=== PATIENT | male | born 1975 | race African-American/Black ===

== ENCOUNTER 2018-12-24 11:41 | Inpatient (IN) | payer OTHER ==
[~2018-12-24] VITALS: Ht 182.9 cm; Wt 161.9 kg
[~2018-12-24 11:41] MED LIST: ASPIRIN325 PO; COREG25 MG PO; ENTRESTO 97 MG1 EACH PO; LIPITOR 20 MG T20 M1 PO
[2018-12-24 11:45] VITALS: BP 131/108
[2018-12-24] MEDS ORDERED: CARDIZEM CD240 MG PO (11:50)
[2018-12-24] MEDS ORDERED: BIDIL TABLET1 EACH PO (11:51)
[2018-12-24] MEDS ORDERED: XARELTO15 MG PO (11:51)
[2018-12-24 12:21] LABS: ABSOLUTE LYMPHOCYTES 1.2 thou/uL (0.8-5.3); ABSOLUTE MONOCYTES 0.6 thou/uL (0.0-1.2); ABSOLUTE NEUTROPHILS 3.6 thou/uL (1.6-8.1); BASOPHILS 0.7 %; EOSINOPHILS 0.2 %; HEMATOCRIT 48.1 % (42.0-52.0); HEMOGLOBIN 15.6 gm/dL (14.0-18.0); LYMPHOCYTES 21.3 %; MCH 27.6 pg (26.0-34.0); MCHC 32.4 g/dL (28.0-37.0); MCV 85.4 fL (80.0-100.0); MONOCYTES 10.9 %; MPV 7.7 fl. (7.2-11.1); NUCLEATED RBCS 0 /100WBC; PLATELET COUNT* 259 thou/uL (150-400); POLYS 66.9 %; RBC 5.63 mil/uL (4.50-6.00); RDW-CV 16.8 % (10.5-14.5); WBC 5.4 thou/uL (4.0-11.0)
[2018-12-24 12:26] LABS: ANION GAP 5 mmol/L (7-16); BUN 18 mg/dL (7-18); CHLORIDE 105 mmol/L (98-107); CO2 30 mmol/L (21-32); CREATININE 2.1 mg/dL (0.6-1.3); GLUCOSE 94 mg/dL (70-99); POTASSIUM 3.7 mmol/L (3.5-5.1); SODIUM 140 mmol/L (136-145)
[2018-12-24 12:30] LABS: APTT 31.3 Seconds (25.0-31.3); INR 1.2; PROTIME 12.6 Seconds (9.20-11.50)
[2018-12-24 12:45] LABS: ALBUMIN 2.6 g/dL (3.4-5.0); ALKALINE PHOSPHATASE 51 U/L (46-116); CK-MB MASS 2.7 ng/mL (<0.5-3.6); LIPASE 89 U/L (73-393); MAGNESIUM 1.5 mg/dL (1.8-2.4); NT-PRO BRAIN NAT PEPTIDE 1976 pg/mL (<300); SGOT 21 U/L (15-37); SGPT 21 U/L (30-65); TOTAL BILIRUBIN 0.7 mg/dL (<0.1-1.0); TOTAL PROTEIN 6.2 g/dL (6.4-8.2); TROPONIN-I LEVEL <0.06 ng/mL (<0.06)
[2018-12-24 15:23] VITALS: BP 128/84
--- NOTE | 2018-12-24 15:38 | EKG ---
[place] [address] ELECTROCARDIOGRAM REPORT Name: HALLVINAY Room: [address] ADM IN M.R.#: [id number] Admission: 12/24/18 Attend Phys: Tari Hedrick MD Discharge: Date of : 71 Report #: [id number] THIS REPORT FOR: //name// [facility] ED Test Date: 2018-12-24 Test Time: 11:54:12 Pat Name: VINAY HALL Department: Room: [facility] Gender: M Property Insurance Claims Examiner: TDOWNS : 1975 Requested By: Stephany Wen Order Number: [id number] MD: Soy South Measurements Intervals [place] Rate: 101 P: AR: QRS: 100 QRSD: 113 T: 253 QT: 391 QTc: 507 Interpretive Statements Atrial fibrillation Ventricular premature complex Borderline intraventricular conduction delay Low voltage, extremity leads Abnormal R-wave progression, late transition Borderline repolarization abnormality Prolonged QT interval Compared to ECG 08/21/2017 09:02:17 Low QRS voltage now present Prolonged QT interval now present Sinus rhythm no longer present Electronically Signed On 12-24-2018 15:38:02 HOSPICE TEAM LEAD by Soy South [email or web address] <ELECTRONICALLY SIGNED> By: Soy South MD, FAC 12/24/18 1538 1154 1154 Soy South MD, [facility] /EPI
--- NOTE | 2018-12-24 16:29 | 2DMMODE ---
[place] [address] 2 D/M-MODE ECHOCARDIOGRAM Name: VINAY HALL Room: [facility] IN [facility]#: [id number] Admission: 12/24/18 Attend Phys: Tari Hedrick, Discharge: Date of : 71 Date of Service: 12/24/18 1629 Report #: [id number] THIS REPORT FOR: //name// APPROVED REPORT Study performed: 12/24/2018 15:33:02 EXAM: Comprehensive 2D, Doppler, and color-flow Echocardiogram Patient Location: In-Patient Room #: 228 Status: routine BSA: 2.78 HR: 70 bpm BP: 140/73 mmHg Rhythm: Atrial Fibrillation Other Information Study Quality: Good Indications Congestive Heart Failure Atrial Fibrillation 2D Dimensions IVSd: 14.52 (7-11mm) LVOT Diam: 25.76 (18-24mm) LVDd: 68.73 mm PWd: 11.97 (7-11mm) Ascending Ao: 37.37 (22-36mm) LVDs: 63.90 (25-40mm) Aortic Root: 34.76 mm Volumes Left Atrial Volume (Systole) LA ESV Index: 88.30 mL/m2 Aortic Valve AoV Peak Oneal.: 0.89 m/s AO Peak Gr.: 3.16 mmHg LVOT Max P.27 mmHg AO Mean Gr.: 2.01 mmHg LVOT Mean P.71 mmHg LVOT Max V: 0.56 m/s AO V2 VTI: 11.94 cm LVOT Mean V: 0.39 m/s STEPHANIE (VTI): 3.37 cm2 LVOT V1 VTI: 7.72 cm TDI Lateral E' Oneal.: 0.12 m/[place] [address] 2 D/M-MODE ECHOCARDIOGRAM Name: VINAY HALL Room: [address] IN M.R.#: [id number] Admission: 12/24/18 Attend Phys: Tari Hedrick, Discharge: Date of : 71 Date of Service: 12/24/18 1629 Report #: [id number] Pulmonary Valve PV Peak Oneal.: 0.84 m/s PV Peak Gr.: 2.80 mmHg Tricuspid Valve RAP Estimate: 10.00 mmHg TR Peak Gr.: 22.61 mmHg RVSP: 32.00 mmHg PA Pressure: 32.00 mmHg Left Ventricle Left ventricle is moderately dilated. There is global hypokinesis of the left ventricle. Borderline concentric left ventricular hypertrophy. Left ventricular systolic function is severely decreased. LVEF is 20%. This study is not technically sufficient to allow evaluation of the LV diastolic function due to atrial fibrillation. Right Ventricle The right ventricle is normal size. The right ventricular systolic function is normal. Atria Left atrium is moderately dilated. The right atrium size is normal. Aortic Valve Mild aortic valve sclerosis. No aortic regurgitation is present. There is no aortic valvular stenosis. Mitral Valve The mitral valve is normal in structure. Mild to moderate mitral regurgitation. No evidence of mitral valve stenosis. Tricuspid Valve The tricuspid valve is normal in structure. Mild tricuspid regurgitation. Mild pulmonary hypertension. Pulmonic Valve The pulmonary valve is normal in structure. Mild pulmonic regurgitation. Great Vessels The aortic root is normal in size. IVC is dilated and collapses >50% with inspiration. Pericardium There [place] [address] 2 D/M-MODE ECHOCARDIOGRAM Name: VINAY HALL Room: [address] IN .R.#: [id number] Admission: 12/24/18 Attend Phys: Tari Hedrick, Discharge: Date of : 71 Date of Service: 12/24/18 1629 Report #: [id number] <Conclusion> Left ventricle is moderately dilated. Borderline concentric left ventricular hypertrophy. Left ventricular systolic function is severely decreased. LVEF is 20%. This study is not technically sufficient to allow evaluation of the LV diastolic function due to atrial fibrillation. The right ventricle is normal size. Left atrium is moderately dilated. Mild aortic valve sclerosis. No aortic regurgitation is present. There is no aortic valvular stenosis. The mitral valve is normal in structure. Mild to moderate mitral regurgitation. The tricuspid valve is normal in structure. Mild tricuspid regurgitation. Mild pulmonary hypertension. IVC is dilated and collapses >50% with inspiration. There is no pericardial effusion. There is global hypokinesis of the left ventricle. <ELECTRONICALLY SIGNED> By: Soy South MD, [facility] 12/24/18 1629 1629 1629 Soy South MD, FACC /INF
[2018-12-24 20:00] VITALS: BP 127/75
[2018-12-25] VITALS (8 sets, daily range): BP systolic 114–136; BP diastolic 73–97
--- NOTE | 2018-12-25 05:35 | NUR ---
PT CURRENTLY RESTING IN BED. PT AFIB ON MONITOR. PT REMAINS ON CPAP DURING NIGHT. PT NO C/O PAIN. AM LABS TO BE REVIEWED.
[2018-12-25 06:14] LABS: HEMATOCRIT 41.9 % (42.0-52.0); MCH 27.4 pg (26.0-34.0); MCHC 32.3 g/dL (28.0-37.0); MCV 84.8 fL (80.0-100.0); MPV 7.7 fl. (7.2-11.1); RBC 4.94 mil/uL (4.50-6.00); RDW-CV 16.8 % (10.5-14.5); WBC 4.6 thou/uL (4.0-11.0)
[2018-12-25 06:18] LABS: HEMOGLOBIN 13.6 gm/dL (14.0-18.0)
[2018-12-25 06:57] LABS: ALBUMIN 2.4 g/dL (3.4-5.0); CALCIUM 8.4 mg/dL (8.5-10.1); MAGNESIUM 1.6 mg/dL (1.8-2.4); POTASSIUM 3.5 mmol/L (3.5-5.1); TOTAL BILIRUBIN 0.9 mg/dL (<0.1-1.0); TOTAL PROTEIN 5.5 g/dL (6.4-8.2)
--- NOTE | 2018-12-25 10:29 | NUR ---
PT ALERT AND ORIENTED. TELE TRACKING AFIB AND ALL VSS ON ROOM AIR. DENIES CP, SOA AT REST. DOES STATE HE HAS MINIMAL SÁNCHEZ. 3+BLE NOTED. INSTRUCTED ON IMPORTANCE OF NURSING RECORDING ACCURATE INTAKE/OUTPUT. EDUCATED ON SAFETY AND PLAN OF CARE. PLEASE SEE ASSESSMENT FOR ADDITIONAL INFORMATION. WILL CONTINUE TO MONITOR
[2018-12-26 05:00] VITALS: BP 119/84
--- NOTE | 2018-12-26 05:58 | NUR ---
VITALS WNL. SEE MAR. SEE CHARTING. HOURLY ROUNDING FOR SAFETY.
[2018-12-26 08:00] VITALS: BP 136/88
[2018-12-26 11:56] VITALS: BP 122/92
[2018-12-26 15:46] VITALS: BP 126/73
[2018-12-26 19:50] VITALS: BP 146/90
[2018-12-27] VITALS: BP 140/87
[2018-12-27 04:00] VITALS: BP 135/91
--- NOTE | 2018-12-27 06:11 | NUR ---
VITALS WNL. SEE MAR. SEE CHARTING. HOURLY ROUNDING FOR SAFETY.
[2018-12-27 08:00] VITALS: BP 128/89
--- NOTE | 2018-12-27 11:05 | NUR ---
MET WITH PT TO DISCUSS HOME SITUATION/DC PLANNING. PT LIVES WITH . IS INDEPENDENT AND ACTIVE, USES CPAP AT HOME. PT STILL WORKS. DENIES ANY DC NEEDS. PLANS TO RETURN HOME AT DC. DISCUSSED DAILY WTS AND COMPLIANCE WITH CPAP, HE STATES HE PLANS TO GET A SCALE AND WEIGH DAILY
[2018-12-27 12:00] VITALS: BP 123/79
--- NOTE | 2018-12-27 13:13 | NUR ---
PT A/O. TELE TRACKING AFIB AND ALL VSS ON ROOM AIR. DENIES CP, SOA. STATES HE FEELS THAT HIS EDEMA IS CONTINUING TO IMPROVE. PT IS LOOKING FORWARD TO DC IN NEXT DAY OR TWO. EDUCATED ON SAFETY AND PLAN OF CARE. PLEASE SEE ASSESSMENT FOR ADDITIONAL INFORMATION. WILL CONTINUE TO MONITOR
[2018-12-27 16:00] VITALS: BP 119/94
[2018-12-27 20:00] VITALS: BP 134/96
[2018-12-28] VITALS: BP 145/99
[2018-12-28 04:00] VITALS: BP 143/93
--- NOTE | 2018-12-28 05:29 | NUR ---
VITALS WNL. SEE MAR. SEE CHARTING. HOURLY ROUNDING FOR SAFETY.
[2018-12-28 08:00] VITALS: BP 127/78
--- NOTE | 2018-12-28 10:23 | NUR ---
ASSUMED CARE OF PATIENT THIS AM AT 0730. PATIENT IS ALERT AND ORIENTED X 4. HE DENIES PAIN THIS AM. TELE SHOWS AFIB FLUTTER WITH FREQUENT VENTRICULAR ECTOPIES. PATIENT IS DIURESING WELL FROM IV LASIX. LUNG SOUNDS REMAIN DIMINISHED WITH SOME CRACKLES NOTED. 2+ BILATERAL LE EDEMA. PLANS TO DISCHARGE TODAY. PATIENT'S LABS TO BE DONE PRIOR TO DISCHARGING.
[2018-12-28 11:21] LABS: CALCIUM 8.8 mg/dL (8.5-10.1); POTASSIUM 3.7 mmol/L (3.5-5.1)
[2018-12-28] MEDS ORDERED: HYDRALAZINE 2525 MG PO (11:58)
[2018-12-28] MEDS ORDERED: IMDUR 60 MG TAB60 M1 PO (11:58)
[2018-12-28] MEDS ORDERED: COREG25 MG PO (11:58)
[2018-12-28] MEDS ORDERED: LASIX 80 MG TAB80 MG PO (13:16)
[2018-12-28] MEDS ORDERED: KLOR-CON 1010 MEQ PO (14:54)
== END 2018-12-28 16:56 | disposition home or self-care (01) | DRG 291 ==
LOC: M.ERS 11:41 → M.TBA-ER 12:54 → M.2W 12:54
PROVIDERS: Family Medicine; Internal Medicine; ADMIT Internal Medicine
DX: I13.0 Hypertensive heart and chronic kidney disease with heart failure and stage 1 through stage 4 chronic kidney disease, or unspecified chronic kidney disease (principal); I50.23 Acute on chronic systolic (congestive) heart failure; N17.9 Acute kidney failure, unspecified; Z68.42 Body mass index [BMI] 45.0-49.9, adult; E44.0 Moderate protein-calorie malnutrition; I48.2 Chronic atrial fibrillation; I42.9 Cardiomyopathy, unspecified; E78.5 Hyperlipidemia, unspecified; G47.30 Sleep apnea, unspecified; E66.01 Morbid (severe) obesity due to excess calories; I25.10 Atherosclerotic heart disease of native coronary artery without angina pectoris; N18.3 Chronic kidney disease, stage 3 (moderate); M10.9 Gout, unspecified; E78.00 Pure hypercholesterolemia, unspecified; Z79.899 Other long term (current) drug therapy

== ENCOUNTER 2019-02-07 22:48 | Inpatient (IN) | payer OTHER ==
[~2019-02-07] VITALS: Ht 182.9 cm; Wt 177.4 kg
[~2019-02-07 22:48] MED LIST changes: +BIDIL TABLET1 EACH PO; +CARDIZEM CD240 MG PO; +HYDRALAZINE 2525 MG PO; +IMDUR 60 MG TAB60 M1 PO; +KLOR-CON 1010 MEQ PO; +LASIX 80 MG TAB80 MG PO; +XARELTO15 MG PO
[2019-02-07 23:02] VITALS: BP 147/105
[2019-02-07 23:27] LABS: ABSOLUTE LYMPHOCYTES 0.7 thou/uL (0.8-5.3); ABSOLUTE MONOCYTES 0.7 thou/uL (0.0-1.2); ABSOLUTE NEUTROPHILS 4.4 thou/uL (1.6-8.1); BASOPHILS 0.7 %; EOSINOPHILS 0.1 %; HEMATOCRIT 41.4 % (42.0-52.0); HEMOGLOBIN 13.2 gm/dL (14.0-18.0); LYMPHOCYTES 12.4 %; MCH 26.5 pg (26.0-34.0); MCHC 31.9 g/dL (28.0-37.0); MCV 83.2 fL (80.0-100.0); MONOCYTES 12.4 %; MPV 7.4 fl. (7.2-11.1); NUCLEATED RBCS 0 /100WBC; PLATELET COUNT* 267 thou/uL (150-400); POLYS 74.4 %; RBC 4.97 mil/uL (4.50-6.00); RDW-CV 17.7 % (10.5-14.5); WBC 5.9 thou/uL (4.0-11.0)
[2019-02-07 23:56] LABS: INR 1.6; PROTIME 16.5 Seconds (9.20-11.50)
[2019-02-08] VITALS (8 sets, daily range): BP systolic 105–143; BP diastolic 62–100
[2019-02-08 00:01] LABS: ANION GAP 10 mmol/L (7-16); BUN 45 mg/dL (7-18); CHLORIDE 104 mmol/L (98-107); CO2 27 mmol/L (21-32); GLUCOSE 125 mg/dL (70-99); POTASSIUM 4.6 mmol/L (3.5-5.1); SODIUM 141 mmol/L (136-145); TROPONIN-I LEVEL <0.06 ng/mL (<0.06)
[2019-02-08 00:03] LABS: ALBUMIN 2.8 g/dL (3.4-5.0); ALKALINE PHOSPHATASE 64 U/L (46-116); NT-PRO BRAIN NAT PEPTIDE 11709 pg/mL (<300); SGOT 29 U/L (15-37); SGPT 31 U/L (30-65); TOTAL BILIRUBIN 0.9 mg/dL (<0.1-1.0); TOTAL PROTEIN 6.1 g/dL (6.4-8.2)
[2019-02-08 03:30] LABS: URINE BILIRUBIN NEGATIVE (Negative); URINE BLOOD NEGATIVE (Negative); URINE CLARITY CLEAR; URINE COLOR YELLOW; URINE GLUCOSE-RANDOM NEGATIVE (Negative); URINE KETONES NEGATIVE (Negative); URINE LEUKOCYTES-REFLEX NEGATIVE (Negative); URINE NITRITE-REFLEX NEGATIVE (Negative); URINE PROTEIN 2+ (Negative); URINE SPECIFIC GRAVITY 1.025 (1.005-1.030); URINE UROBILINOGEN 0.2 E.U./dl (0.2-1.0)
[2019-02-08 04:10] LABS: HYALINE CASTS 0-3 Few /LPF (None Seen); SQUAMOUS 0-3 Few /LPF (0-3)
[2019-02-08 04:11] LABS: BACTERIA-REFLEX 1-9 Few /HPF (None Seen); CRYSTALS None Seen /LPF (None Seen); URINE RBC None Seen /HPF (0-2); URINE WBC-REFLEX 0-5 Rare /HPF (0-5)
[2019-02-08 12:27] LABS: CALCIUM 8.8 mg/dL (8.5-10.1); CREATININE 2.7 mg/dL (0.6-1.3); POTASSIUM 4.3 mmol/L (3.5-5.1)
[2019-02-08 14:20] LABS: AMP/METHAMP Negative (Negative); BARBITURATES Negative (Negative); BENZODIAZEPINES Negative (Negative); COCAINE Negative (Negative); METHADONE Negative (Negative); OPIATES Negative (Negative); PCP Negative (Negative); THC Negative (Negative)
--- NOTE | 2019-02-08 15:54 | EKG ---
[place] [address] ELECTROCARDIOGRAM REPORT Name: ISABELVINAY Room: [address] ADM IN M.R.#: [id number] Admission: 02/08/19 Attend Phys: Melo Funk MD Discharge: Date of : 71 Report #: [id number] THIS REPORT FOR: //name// [facility] ED Test Date: 2019-02-08 Test Time: 00:04:31 Pat Name: VINAY HALL Department: Room: [address] Gender: M Bar Examiner: MARLYN : 1975 Requested By: Lara Garcia Order Number: [id number] MD: Arvind Villarreal Measurements Intervals [place] Rate: 101 P: VA: QRS: 107 QRSD: 112 T: 243 QT: 354 QTc: 459 Interpretive Statements Atrial fibrillation Ventricular premature complex Borderline intraventricular conduction delay Low voltage, extremity leads Nonspecific T abnormalities, lateral leads Baseline wander in lead(s) I,III,aVL Compared to ECG 12/24/2018 11:54:12 T-wave abnormality now present Prolonged QT interval no longer present Electronically Signed On 02-08-2019 15:54:09 CDT by Arvind Villarreal [email or web address] <ELECTRONICALLY SIGNED> By: Arvind Villarreal MD, FACC 02/08/19 1554 0004 0004 Arvind Villarreal MD, FAC /EPI
[2019-02-09 04:00] VITALS: BP 133/79
[2019-02-09 05:44] LABS: ABSOLUTE LYMPHOCYTES 1.1 thou/uL (0.8-5.3); ABSOLUTE MONOCYTES 0.7 thou/uL (0.0-1.2); ABSOLUTE NEUTROPHILS 4.2 thou/uL (1.6-8.1); BASOPHILS 0.5 %; EOSINOPHILS 0.4 %; HEMATOCRIT 38.2 % (42.0-52.0); HEMOGLOBIN 12.5 gm/dL (14.0-18.0); LYMPHOCYTES 17.9 %; MCHC 32.7 g/dL (28.0-37.0); MCV 82.5 fL (80.0-100.0); MONOCYTES 11.9 %; MPV 7.5 fl. (7.2-11.1); NUCLEATED RBCS 0 /100WBC; PLATELET COUNT* 248 thou/uL (150-400); POLYS 69.3 %; RBC 4.63 mil/uL (4.50-6.00); RDW-CV 18.3 % (10.5-14.5)
[2019-02-09 06:06] LABS: ALBUMIN 2.5 g/dL (3.4-5.0); CALCIUM 8.5 mg/dL (8.5-10.1); CREATININE 2.5 mg/dL (0.6-1.3); MAGNESIUM 1.7 mg/dL (1.8-2.4); PHOSPHORUS* 4.6 mg/dL (2.5-4.9); POTASSIUM 3.9 mmol/L (3.5-5.1)
[2019-02-09 08:50] VITALS: BP 135/88
[2019-02-09 12:00] VITALS: BP 141/97
[2019-02-09 16:04] VITALS: BP 111/77
[2019-02-09 20:00] VITALS: BP 114/78
[2019-02-10] VITALS (7 sets, daily range): BP systolic 119–151; BP diastolic 85–105
[2019-02-10 05:08] LABS: ABSOLUTE LYMPHOCYTES 0.8 thou/uL (0.8-5.3); ABSOLUTE MONOCYTES 0.6 thou/uL (0.0-1.2); ABSOLUTE NEUTROPHILS 3.9 thou/uL (1.6-8.1); BASOPHILS 0.4 %; EOSINOPHILS 0.4 %; HEMATOCRIT 40.2 % (42.0-52.0); HEMOGLOBIN 12.9 gm/dL (14.0-18.0); LYMPHOCYTES 15.1 %; MCH 26.6 pg (26.0-34.0); MCHC 32.1 g/dL (28.0-37.0); MCV 82.7 fL (80.0-100.0); MONOCYTES 11.9 %; MPV 7.4 fl. (7.2-11.1); NUCLEATED RBCS 0 /100WBC; PLATELET COUNT* 240 thou/uL (150-400); POLYS 72.2 %; RBC 4.86 mil/uL (4.50-6.00); RDW-CV 18.1 % (10.5-14.5); WBC 5.4 thou/uL (4.0-11.0)
[2019-02-10 05:16] LABS: CALCIUM 8.6 mg/dL (8.5-10.1); CREATININE 2.3 mg/dL (0.6-1.3); POTASSIUM 3.8 mmol/L (3.5-5.1)
[2019-02-10 06:36] LABS: ALBUMIN 2.6 g/dL (3.4-5.0); CREATININE 2.3 mg/dL (0.6-1.3); PHOSPHORUS* 4.2 mg/dL (2.5-4.9); POTASSIUM 3.9 mmol/L (3.5-5.1)
--- NOTE | 2019-02-10 10:11 | CON ---
[address] [address] CONSULTATION Name: VINAY HALL Room: [address] IN M.R.#: [id number] Admission: 02/08/19 Attend Phys: Melo Funk MD Discharge: Date of : 71 Report #: [id number] THIS REPORT FOR: //name// CC: Melo Cleaning DATE OF SERVICE: 02/08/2019 CONSULTING PHYSICIAN: Melo Funk MD. REASON FOR CONSULTATION: Acute kidney injury. HISTORY OF PRESENT ILLNESS: A 47-year-old gentleman admitted with dyspnea on exertion and CHF. He was having orthopnea and has a history of cardiomyopathy and consideration has been given for a biventricular ICD. He does take Advil about 3 times a week. Denies any nausea, vomiting or diarrhea, presently appears to be comfortable. He has no other complaints. REVIEW OF SYSTEMS: Constitutional, psych, heme, eyes, ENT, respiratory, cardiac, GI, , endocrine, all negative except as documented above. PAST MEDICAL HISTORY: Nonischemic cardiomyopathy, dyslipidemia, hypertension, history of obstructive sleep apnea, history of AFib, history of gout. SOCIAL HISTORY: No tobacco. MEDICATIONS: Reviewed. FAMILY HISTORY: No known kidney disease. PHYSICAL EXAMINATION: VITAL SIGNS: Blood pressure 134/89, pulse 85, temperature 36.3, respirations 22. GENERAL: No acute distress. EYES: Open. EARS: Externally normal. CARDIOVASCULAR: Regular rate. LUNGS: No crackles. ABDOMEN: Soft. MUSCULOSKELETAL: Bilateral lower extremity edema. PSYCHIATRIC: Awake, alert. LABORATORY DATA: White cell count 5.9, hemoglobin 13.2, platelets 267. Sodium 141, potassium 4.6, chloride 104, bicarbonate 27, BUN 45, creatinine 3, glucose 125, calcium 9, albumin 2.8[place] [address] CONSULTATION Name: VINAY HALL Room: [address] IN [facility]#: [id number] Admission: 02/08/19 Attend Phys: Melo Funk MD Discharge: Date of : 71 Report #: [id number] ASSESSMENT: 1. Acute kidney injury with an admission creatinine of 3 in the setting of an EF of 20%, decompensated congestive heart failure. UA is noted. In 2017, creatinine was 1.9. He was also on valsartan as an outpatient, taking Advil 3 times a week. 2. Chronic kidney disease stage 3. He saw me in 01/2018, but was lost to follow up. He has had hypertension since 2005. 3. Hypertension. 4. Morbid obesity. 5. Gout. 6. Hypoalbuminemia. Albumin 2.8. 7. Nonischemic cardiomyopathy with an EF of 20%. 8. Atrial fibrillation. 9. Obstructive sleep apnea. PLAN: 1. Check lab now. 2. He is on potassium supplement with potassium 4.6. We will need to monitor closely. 3. Check CK. 4. He is on Lasix per Cardiology. Dobutamine has been started. Agree with that. 5. Check renal ultrasound. 6. He is on a 2 liter fluid restriction with a 2-gram sodium dietary restriction. 7. Check urine protein creatinine ratio. 8. Check bladder scan. 9. Check labs again in the a.m. Thank you for requesting my opinion in the care and management of this patient. <ELECTRONICALLY SIGNED> By: Parrish Bojorquez MD 02/10/19 1011 1143 0400Parrish Bojorquez MD /nt
[2019-02-11] VITALS: BP 146/88
[2019-02-11 04:00] VITALS: BP 140/98
[2019-02-11 08:25] LABS: ABSOLUTE LYMPHOCYTES 0.6 thou/uL (0.8-5.3); ABSOLUTE MONOCYTES 0.5 thou/uL (0.0-1.2); BASOPHILS 0.4 %; EOSINOPHILS 0.6 %; HEMATOCRIT 40.4 % (42.0-52.0); HEMOGLOBIN 12.9 gm/dL (14.0-18.0); LYMPHOCYTES 15.4 %; MCH 26.5 pg (26.0-34.0); MCHC 31.9 g/dL (28.0-37.0); MCV 82.9 fL (80.0-100.0); MPV 7.4 fl. (7.2-11.1); NUCLEATED RBCS 0 /100WBC; PLATELET COUNT* 220 thou/uL (150-400); POLYS 71.6 %; RBC 4.87 mil/uL (4.50-6.00); RDW-CV 18.2 % (10.5-14.5); WBC 4.2 thou/uL (4.0-11.0)
[2019-02-11 08:29] LABS: ALBUMIN 2.6 g/dL (3.4-5.0); CALCIUM 8.6 mg/dL (8.5-10.1); CREATININE 2.1 mg/dL (0.6-1.3); POTASSIUM 3.7 mmol/L (3.5-5.1)
[2019-02-11 08:38] LABS: PREALBUMIN 20.9 mg/dL (18.0-35.7)
[2019-02-11 08:45] VITALS: BP 144/93
[2019-02-11 11:54] VITALS: BP 113/76
[2019-02-11 15:54] VITALS: BP 136/61
[2019-02-11 20:00] VITALS: BP 118/84
[2019-02-12] VITALS: BP 128/92
[2019-02-12 04:00] VITALS: BP 165/87
[2019-02-12 05:41] LABS: CREATININE 2.3 mg/dL (0.6-1.3)
[2019-02-12 12:00] VITALS: BP 136/89
[2019-02-12 16:00] VITALS: BP 136/107
[2019-02-12 20:00] VITALS: BP 140/92
[2019-02-13] VITALS: BP 130/101
[2019-02-13 04:00] VITALS: BP 152/104
[2019-02-13 05:32] LABS: CALCIUM 8.9 mg/dL (8.5-10.1); CREATININE 1.9 mg/dL (0.6-1.3); POTASSIUM 3.6 mmol/L (3.5-5.1)
[2019-02-13 06:40] LABS: MAGNESIUM 1.7 mg/dL (1.8-2.4)
[2019-02-13 08:00] VITALS: BP 165/82
[2019-02-13 12:00] VITALS: BP 139/87
[2019-02-13 16:00] VITALS: BP 126/87
[2019-02-13 20:00] VITALS: BP 156/94
[2019-02-14] VITALS: BP 125/104
[2019-02-14 03:56] VITALS: BP 150/106
[2019-02-14 04:26] LABS: HEMATOCRIT 41.8 % (42.0-52.0); HEMOGLOBIN 13.4 gm/dL (14.0-18.0); MCH 26.6 pg (26.0-34.0); MCHC 32.1 g/dL (28.0-37.0); MCV 82.8 fL (80.0-100.0); MPV 7.5 fl. (7.2-11.1); RBC 5.05 mil/uL (4.50-6.00); RDW-CV 18.5 % (10.5-14.5)
[2019-02-14 05:07] LABS: CREATININE 1.9 mg/dL (0.6-1.3); MAGNESIUM 1.8 mg/dL (1.8-2.4); POTASSIUM 3.8 mmol/L (3.5-5.1)
[2019-02-14 08:00] VITALS: BP 140/100
[2019-02-14 11:26] VITALS: BP 154/103
[2019-02-14 16:00] VITALS: BP 117/86
[2019-02-14 20:00] VITALS: BP 121/84
[2019-02-15] VITALS: BP 109/77
[2019-02-15 04:00] VITALS: BP 141/105
[2019-02-15 04:30] VITALS: BP 138/89
[2019-02-15 08:00] VITALS: BP 146/89
[2019-02-15 09:37] VITALS: BP 146/89
[2019-02-15] MEDS ORDERED: KLOR-CON 1010 MEQ PO (14:32)
[2019-02-15] MEDS ORDERED: AUGMENTIN 875-1 EACH PO (14:40)
== END 2019-02-15 15:32 | disposition home or self-care (01) | DRG 682 ==
LOC: M.ERS 22:48 → M.2W 02-08 00:18 → M.TBA-ER 02-08 00:18 → M.2W 02-08 01:50
PROVIDERS: Emergency Medicine; Internal Medicine; Internal Medicine Nephrology; ADMIT Internal Medicine
DX: N17.0 Acute kidney failure with tubular necrosis (principal); I50.43 Acute on chronic combined systolic (congestive) and diastolic (congestive) heart failure; J18.9 Pneumonia, unspecified organism; I13.0 Hypertensive heart and chronic kidney disease with heart failure and stage 1 through stage 4 chronic kidney disease, or unspecified chronic kidney disease; Z68.43 Body mass index [BMI] 50.0-59.9, adult; I42.9 Cardiomyopathy, unspecified; N18.4 Chronic kidney disease, stage 4 (severe); E78.00 Pure hypercholesterolemia, unspecified; E78.5 Hyperlipidemia, unspecified; M10.9 Gout, unspecified; G47.33 Obstructive sleep apnea (adult) (pediatric); E66.01 Morbid (severe) obesity due to excess calories; I48.2 Chronic atrial fibrillation; E87.70 Fluid overload, unspecified; R80.9 Proteinuria, unspecified; Z79.899 Other long term (current) drug therapy

== ENCOUNTER → 2019-02-21 | Outpatient (CLI) | payer OTHER ==
[~2019-02-21] MED LIST changes: +AUGMENTIN 875-1 EACH PO
[2019-02-21 09:07] LABS: ANION GAP 7 mmol/L (7-16); BUN 30 mg/dL (7-18); CALCIUM 8.8 mg/dL (8.5-10.1); CHLORIDE 100 mmol/L (98-107); CHOLESTEROL 142 mg/dL (<200); CO2 30 mmol/L (21-32); CREATININE 2.6 mg/dL (0.6-1.3); GLUCOSE 108 mg/dL (70-99); HDL CHOLESTEROL 45 mg/dL (>40); LDL CHOLESTEROL 83 mg/dL (<100); POTASSIUM 4.5 mmol/L (3.5-5.1); SODIUM 137 mmol/L (136-145); TC:HDL 3.2 Ratio (Not establshd); TRIGLYCERIDE 71 mg/dL (<150); VLDL 14 mg/dL (<40)
[2019-02-21 09:12] LABS: SERUM ASSESSMENT Clear
== END ==
LOC: M.LAB 08:02
PROVIDERS: Registered Nurse
DX: I25.10 Atherosclerotic heart disease of native coronary artery without angina pectoris (principal); I50.22 Chronic systolic (congestive) heart failure

== ENCOUNTER → 2019-02-25 | Outpatient (CLI) | payer OTHER ==
[2019-02-25 09:21] LABS: CHOLESTEROL 132 mg/dL (<200); HDL CHOLESTEROL 47 mg/dL (>40); LDL CHOLESTEROL 74 mg/dL (<100); TC:HDL 2.8 Ratio (Not establshd); TRIGLYCERIDE 58 mg/dL (<150); VLDL 12 mg/dL (<40)
[2019-02-25 09:26] LABS: SERUM ASSESSMENT Clear
== END ==
LOC: M.LAB 08:42
PROVIDERS: Registered Nurse
DX: I25.10 Atherosclerotic heart disease of native coronary artery without angina pectoris (principal)

== ENCOUNTER → 2019-03-01 | Outpatient (CLI) | payer OTHER ==
[~2019-03-01] MED LIST changes: +PRADAXA150 MG PO; +TORSEMIDE20 MG PO
[2019-03-01 13:05] VITALS: BP 139/85
[2019-03-01 13:14] LABS: HEMATOCRIT 40.6 % (42.0-52.0); HEMOGLOBIN 13.2 gm/dL (14.0-18.0); MCH 26.4 pg (26.0-34.0); MCHC 32.4 g/dL (28.0-37.0); MCV 81.7 fL (80.0-100.0); MPV 7.7 fl. (7.2-11.1); RBC 4.98 mil/uL (4.50-6.00); RDW-CV 18.4 % (10.5-14.5); WBC 5.6 thou/uL (4.0-11.0)
[2019-03-01 13:23] LABS: INR 1.5; PROTIME 15.5 Seconds (9.20-11.50)
[2019-03-01 13:25] LABS: ALBUMIN 2.7 g/dL (3.4-5.0); CALCIUM 9.1 mg/dL (8.5-10.1); CREATININE 2.7 mg/dL (0.6-1.3); POTASSIUM 4.5 mmol/L (3.5-5.1); TOTAL BILIRUBIN 1.1 mg/dL (<0.1-1.0); TOTAL PROTEIN 6.4 g/dL (6.4-8.2)
[2019-03-01 13:28] VITALS: BP 129/97
[2019-03-01 13:33] VITALS: BP 135/104
[2019-03-01 13:37] VITALS: BP 139/108
[2019-03-01 13:41] VITALS: BP 123/103
--- NOTE | 2019-03-01 15:48 | NUR ---
PATIENT CAME FOR CARDIOVERSION AND CHICHI. WHEN PERFORMING THE CHICHI, DR. ALMENDAREZ DISCOVERED AN EXISTING THROMBUS IN THE LEFT ATRIAL APPENDAGE. THE CARDIOVERSION WAS NOT PERFORMED. PATIENT IS ON XARELTO, AND ITS NOT STRONG ENOUGH. DR. ALMENDAREZ GAVE PATIENT PRADAXA AND TOLD HIM TO STOP THE XARELTO AND START THIS EVENING. ALSO, LASIX CHANGED TO TORSEMIDE TO HELP GET RID OF THE FLUID
--- NOTE | 2019-03-01 15:52 | TEE ---
[place] [address] TRANSESOPHAGEAL ECHOCARDIOGRAM Name: VINAY HALL JR Room: [facility]#: [id number] Admission: 03/01/19 Attend Phys: Rubin Cleaning, Discharge: Date of : 71 Date of Service: 03/01/19 1551 Report #: [id number] THIS REPORT FOR: //name// APPROVED REPORT Study performed: 03/01/2019 13:31:48 EXAM: Transesophageal Echocardiogram Patient Location: Out-Patient Status: routine BSA: 2.67 HR: 112 bpm BP: 135/104 mmHg Rhythm: Atrial Fibrillation Other Information Study Quality: Good Indications Atrial Fibrillation Procedure After obtaining informed consent, patient underwent transesophageal echo in the [employer]. Type of Sedation : Conscious Sedation Sedation start time: 1334 Case end Time: 1343 Sedation was achieved intravenously with: Versed (3) Fentanyl (75) Transesophageal probe was inserted and advanced into esophagus without difficulty by Rubin Cleaning MD, [facility]. The CHICHI was performed without complications. Throughout the procedure, the blood pressure, pulse oximetry, cardiac rhythm, and rate were monitored. The patient tolerated the procedure without adverse effects. Recovery from conscious sedation was uneventful and vital signs were stable. Left Ventricle Left ventricle is moderately dilated. There is global hypokinesis of the left ventricle. There is normal left ventricular wall thickness. The left ventricular systolic function is normal. The left ventricular ejection fraction is within the normal range. No left ventricle thrombus noted on this study. LVEF is 20-25%. [place] [address] TRANSESOPHAGEAL ECHOCARDIOGRAM Name: VINAY HALL JR Room: [facility]#: [id number] Admission: 03/01/19 Attend Phys: Rubin Cleaning, Discharge: Date of : 71 Date of Service: 03/01/19 1551 Report #: [id number] The right ventricle is normal size. The right ventricular systolic function is normal. Atria Left atrium is moderately dilated.Spontaneous echo contrast present Thrombus is present in the left atrial appendage. Right atrium is moderately dilated. Aortic Valve The aortic valve is normal in structure. No aortic regurgitation is present. There is no aortic valvular stenosis. Mitral Valve The mitral valve is normal in structure. Mild mitral regurgitation. No evidence of mitral valve stenosis. Tricuspid Valve The tricuspid valve is normal in structure. Pulmonic Valve The pulmonary valve is normal in structure. Great Vessels The aortic root is normal in size. Pericardium There is no pericardial effusion. <Conclusion> LVEF is 20-25%. There is global hypokinesis of the left ventricle. Left atrium is moderately dilated. Thrombus is present in the left atrial appendage. There is no aortic valvular stenosis. No aortic regurgitation is present. Mild mitral regurgitation. <ELECTRONICALLY SIGNED> By: Rubin Cleaning MD, FACC 03/01/19 155 155 50 Rubin Cleaning MD, FACC /INF
== END | disposition home or self-care (01) ==
LOC: M.CL 11:48
PROVIDERS: Internal Medicine Cardiovascular Disease
DX: I34.0 Nonrheumatic mitral (valve) insufficiency (principal); I51.3 Intracardiac thrombosis, not elsewhere classified; I50.9 Heart failure, unspecified; Z79.899 Other long term (current) drug therapy

== ENCOUNTER → 2019-03-10 | Outpatient (CLI) | payer OTHER ==
[2019-03-10 08:22] LABS: CALCIUM 9.3 mg/dL (8.5-10.1); POTASSIUM 3.5 mmol/L (3.5-5.1)
== END ==
LOC: M.LAB 07:43
PROVIDERS: Nurse Practitioner
DX: I13.0 Hypertensive heart and chronic kidney disease with heart failure and stage 1 through stage 4 chronic kidney disease, or unspecified chronic kidney disease (principal); N18.2 Chronic kidney disease, stage 2 (mild); I50.22 Chronic systolic (congestive) heart failure

== ENCOUNTER → 2019-04-07 | Outpatient (CLI) | payer OTHER ==
[2019-04-07] VITALS (13 sets, daily range): BP systolic 116–137; BP diastolic 49–98
[~2019-04-07] MED LIST changes: +DEMADEX20 MG PO
--- NOTE | ~2019-04-07 | CARD ---
[address] [address] CARDIAC CATH REPORT Name: VINAY HALL JR [id number] Admission: 04/07/19 Attend Phys: Rubin Cleaning MD Discharge: Date of : 71 Report #: [id number] THIS REPORT FOR: //name// CC: JAISON Cleaning DATE OF SERVICE: 04/07/2019 OUTPATIENT CHICHI CARDIOVERSION INDICATIONS: Congestive heart failure, atrial fibrillation. HISTORY OF PRESENT ILLNESS: The patient is a 43-year-old male with nonischemic cardiomyopathy and atrial fibrillation. No intracardiac thrombus. This patient underwent a transesophageal echocardiogram with cardioversion today. CONSENT: The risks and benefits of the procedure were described to the patient in lay terms. Conscious sedation was administered via anesthesia care. Please see record for dosing and monitoring was performed per their protocol. After the patient's successful sedation, the transesophageal probe inserted and images were obtained and there was no evidence of intracardiac thrombus and the patient was successfully cardioverted from atrial fibrillation to sinus rhythm. IMPRESSION: Successful transesophageal echocardiography-guided cardioversion. By: 1352 0336Rubin Cleaning MD, FACC /nt
[2019-04-07 10:27] LABS: HEMATOCRIT 41.3 % (42.0-52.0); HEMOGLOBIN 13.4 gm/dL (14.0-18.0); MCH 25.8 pg (26.0-34.0); MCHC 32.4 g/dL (28.0-37.0); MCV 79.4 fL (80.0-100.0); MPV 7.8 fl. (7.2-11.1); RBC 5.2 mil/uL (4.50-6.00); RDW-CV 17.4 % (10.5-14.5); WBC 4.9 thou/uL (4.0-11.0)
[2019-04-07 10:35] LABS: CALCIUM 9.3 mg/dL (8.5-10.1); CREATININE 2.4 mg/dL (0.6-1.3); POTASSIUM 3.3 mmol/L (3.5-5.1)
[2019-04-07 10:37] LABS: APTT 59.2 Seconds (25.0-31.3); INR 1.6; PROTIME 16.6 Seconds (9.20-11.50)
[2019-04-07 10:40] LABS: ALBUMIN 3.2 g/dL (3.4-5.0); TOTAL BILIRUBIN 0.7 mg/dL (<0.1-1.0); TOTAL PROTEIN 7.2 g/dL (6.4-8.2)
--- NOTE | 2019-04-07 13:51 | TEE ---
[place] [address] TRANSESOPHAGEAL ECHOCARDIOGRAM Name: VINAY HALL JR Room: [facility]#: [id number] Admission: 04/07/19 Attend Phys: Rubin Cleaning, Discharge: Date of : 71 Date of Service: 04/07/19 1350 Report #: [id number] THIS REPORT FOR: //name// APPROVED REPORT Study performed: 04/07/2019 10:58:56 EXAM: Transesophageal Echocardiogram Patient Location: Out-Patient Status: routine BSA: 2.65 HR: 89 bpm BP: 126/96 mmHg Rhythm: Atrial Fibrillation Other Information Study Quality: Good Indications Atrial Fibrillation Procedure After obtaining informed consent, patient underwent transesophageal echo in the [employer]. Type of Sedation : General Anesthesia Sedation was administered by Anesthesiologist. Sedation start time: 1108 Case end Time: 1120 Sedation was achieved intravenously with: Versed (2) Propofol (190) Transesophageal probe was inserted and advanced into esophagus without difficulty by Rubin Cleaning MD, FACC. The CHICHI was performed without complications. Synchronized Cardioversion acheived with 300 Joules after 1 attempt(s). Rhythm following Synchronized Cardioversion: Normal Sinus Rhythm Throughout the procedure, the blood pressure, pulse oximetry, cardiac rhythm, and rate were monitored. The patient tolerated the procedure without adverse effects. Recovery from conscious sedation was uneventful and vital signs were stable. Left Ventricle Left ventricle is moderately dilated. There is global hypokinesis of the left ventricle. There is normal left ventricular wall thickness. Left ventricular systolic function is severely [place] [address] TRANSESOPHAGEAL ECHOCARDIOGRAM Name: HALLVINAY Room: [facility]#: [id number] Admission: 04/07/19 Attend Phys: Rubin Cleaning, Discharge: Date of : 71 Date of Service: 04/07/19 1350 Report #: [id number] ventricle thrombus noted on this study. LVEF is 20-25%. Right Ventricle The right ventricle is normal size. The right ventricular systolic function is normal. Atria Left atrium is moderately dilated. No thrombus is visualized in the left atrium or appendage. Mild spontaneous echo contrast Right atrium is moderately dilated. Aortic Valve The aortic valve is normal in structure. No aortic regurgitation is present. Mitral Valve The mitral valve is normal in structure. Mild mitral regurgitation. Tricuspid Valve Tricuspid valve is not well visualized. Pulmonic Valve Pulmonic valve is not well visualized. Great Vessels The aortic root is normal in size. Pericardium There is no pericardial effusion. <Conclusion> Left ventricle is moderately dilated. There is global hypokinesis of the left ventricle. LVEF is 20-25%. Left atrium is moderately dilated. No thrombus is visualized in the left atrium or appendage. <ELECTRONICALLY SIGNED> By: Rubin Cleaning MD, [facility] 04/07/19 1350 1350 1350 Rubin Cleaning MD, FAC /INF
--- NOTE | 2019-04-07 14:04 | EKG ---
[place] [address] ELECTROCARDIOGRAM REPORT Name: VINAY HALL JR Room: [facility]#: [id number] Admission: 04/07/19 Attend Phys: Rubin Cleaning MD Discharge: Date of : 71 Report #: [id number] THIS REPORT FOR: //name// [facility] Test Date: 2019-04-07 Test Time: 12:55:59 Pat Name: VINAY HALL Department: Room: Gender: M Bilingual Customer Service: : 1975 Requested By: Rubin Cleaning Order Number: [id number] Julio MD: Garcia Purvis Measurements Intervals [place] Rate: 81 P: 67 [place]: 193 QRS: 89 QRSD: 115 T: -89 QT: 408 QTc: 474 Interpretive Statements Sinus rhythm Ventricular bigeminy Probable left atrial enlargement Nonspecific intraventricular conduction delay Low voltage, extremity leads Borderline repolarization abnormality Compared to ECG 02/08/2019 00:04:31 Atrial fibrillation no longer present Electronically Signed On 04-07-2019 14:04:20 CDT by Garcia Purvis [email or web address] <ELECTRONICALLY SIGNED> By: Garcia Purvis MD, [facility] 04/07/19 1404 1255 1255 Garcia Purvis MD, [facility] /EPI
== END | disposition home or self-care (01) ==
LOC: M.CL 09:30
PROVIDERS: Internal Medicine Cardiovascular Disease
DX: I48.91 Unspecified atrial fibrillation (principal); I50.9 Heart failure, unspecified; N18.9 Chronic kidney disease, unspecified; Z79.899 Other long term (current) drug therapy

== ENCOUNTER → 2019-07-25 | Outpatient (CLI) | payer OTHER ==
[2019-07-25 17:02] LABS: ALBUMIN 3.7 g/dL (3.4-5.0); CALCIUM 9.5 mg/dL (8.5-10.1); CREATININE 2.2 mg/dL (0.6-1.3); PHOSPHORUS* 4.5 mg/dL (2.5-4.9); POTASSIUM 3.2 mmol/L (3.5-5.1)
[2019-07-25 17:13] LABS: CALCIUM 9.4 mg/dL (8.5-10.1); CREATININE 2.2 mg/dL (0.6-1.3); PHOSPHORUS* 4.5 mg/dL (2.5-4.9)
== END ==
LOC: M.LAB 16:18
PROVIDERS: Internal Medicine Nephrology
DX: N18.3 Chronic kidney disease, stage 3 (moderate) (principal); I48.91 Unspecified atrial fibrillation

== ENCOUNTER → 2019-10-31 | Outpatient (CLI) | payer OTHER ==
[2019-10-31 16:58] LABS: ALBUMIN 3.6 g/dL (3.4-5.0); CREATININE 2.2 mg/dL (0.6-1.3); POTASSIUM 3.9 mmol/L (3.5-5.1); TOTAL BILIRUBIN 0.5 mg/dL (<0.1-1.0); TOTAL PROTEIN 7.9 g/dL (6.4-8.2)
== END ==
LOC: M.LAB 16:13
PROVIDERS: Nurse Practitioner
DX: I12.9 Hypertensive chronic kidney disease with stage 1 through stage 4 chronic kidney disease, or unspecified chronic kidney disease (principal); N18.9 Chronic kidney disease, unspecified